=== PATIENT | female | born 1980 | race Caucasian/White ===

== ENCOUNTER → 2017-07-24 18:13 | Outpatient (CLI) | payer OTHER ==
[~2017-07-24] VITALS: Ht 152.4 cm; Wt 86.2 kg
[~2017-07-24 18:13] MED LIST: CIPRO500 MG PO; DOLOGESIC CAPLE1 TAB PO; ENALAPRIL MALEAT5 MG; ENALAPRIL MALEAT5 MG PO; GLUCOPHAGE XR500 MG; HUMALOG KW100 UNIT/1; HUMALOG MI100 UNIT/1 SUBCUTANEO; HUMALOG100 U/ML; LANTUS SOL100 UNIT/1; LANTUS SOL100 UNIT/1 SUBCUTANEO; LANTUS SOLOSTAR3 ML SUBCUTANEO; LANTUS100 U/ML; LIPITOR20 MG; MEDROL4 MG PO; OMEPRAZOLE20 MG PO; RANITIDINE HCL300 M1 PO; VASOTEC5 MG PO
== END | disposition home or self-care (01) ==
LOC: PPHC 18:13
DX: E13.9 Other specified diabetes mellitus without complications (principal); Z76.0 Encounter for issue of repeat prescription; Z00.00 Encounter for general adult medical examination without abnormal findings